=== PATIENT | male | born 1960 | race Caucasian/White ===

== ENCOUNTER 2017-09-18 12:50 | Inpatient (IN) | payer BC ==
[2017-09-18] MEDS ORDERED: Albuterol/Ipratropium 3.0-0.5 MG/3 ML Neb Soln NEB ONE (13:14)
--- NOTE | 2017-09-18 13:16 | EDM.PDOC ---
ED HPI GENERAL MEDICAL PROBLEM - General Chief Complaint: General Stated Complaint: irregular heartbeat Time Seen by Provider: 09/18/17 12:50 Source of Information: Reports: Patient History Limitations: Reports: No Limitations - History of Present Illness INITIAL COMMENTS - FREE TEXT/NARRATIVE: 57 y.o.w.m came to the ed due to leg swelling and SOB. Pt can no t walk 1/2 a block, then get sob. he was not dx'd with SOB in the past. He is on inhalers. No F/C. Pulse ox was 80 with movement on arrival. BP 144/88 Pulse ox 90 (at rest ) Temp 36.1 RR 17 Onset Date: 09/16/17 Onset Time: 07:00 Duration: Day(s):, Getting Worse Location: Reports: Lower Extremity, Left, Lower Extremity, Right Quality: Reports: Ache Severity: Moderate Improves with: Reports: Rest Worsens with: Reports: Movement Context: Reports: Other (legswelling) Associated Symptoms: Reports: Cough, Shortness of Breath - Related Data Allergies Allergy/AdvReac Type Severity Reaction Status Date / Time No Known Allergies Allergy Verified 09/18/17 13:04 Home Meds: Home Meds Albuterol Sulfate [Ventolin Hfa] 2 inhalation INH BID 09/18/17 [History] Budesonide/Formoterol [Symbicort 160-4.5 MCG] 10.2 gm IH ASDIRECTED 09/18/17 [ History] Umeclidinium Emblem [Incruse Ellipta*] 1 inhalation INH DAILY 09/18/17 [History ] Albuterol/Ipratropium [DuoNeb 3.0-0.5 MG/3 ML] 3 ml INH QIDRT 30 Days #100 neb 09/19/17 [Rx] Nicotine [Habitrol] 21 mg TRDERM DAILY 30 Days #30 patch 09/19/17 [Rx] Prednisone [IJD: predniSONE] 40 mg PO WITHBREAKFAST 3 Days #6 tablet 09/19/17 [ Rx] Sulfamethoxazole/Trimethoprim [IJD: Sulfamethoxazole/Trimethoprim DS] 1 tab PO BID 4 Days #8 tablet 09/19/17 [Rx] Umeclidinium Brm/Vilanterol Tr [Anoro Ellipta 62.5-25 MCG] 62.5 mcg IH DAILY inhaler 11/05/17 [Rx] ED ROS GENERAL - Review of Systems Review Of Systems: See Below Constitutional: Reports: Weakness HEENT: Reports: No Symptoms Respiratory: Reports: Shortness of Breath, Wheezing, Cough Cardiovascular: Reports: Dyspnea on Exertion, Edema, Orthopnea Endocrine: Reports: No Symptoms GI/Abdominal: Reports: No Symptoms : Reports: No Symptoms Musculoskeletal: Reports: No Symptoms Skin: Reports: No Symptoms Neurological: Reports: No Symptoms Psychiatric: Reports: No Symptoms Hematologic/Lymphatic: Reports: No Symptoms Immunologic: Reports: No Symptoms ED EXAM, GENERAL - Physical Exam Exam: See Below Exam Limited By: No Limitations General Appearance: Alert, WD/WN, Moderate Distress Eye Exam: Bilateral Eye: Normal Inspection Ears: Normal External Exam Ear Exam: Bilateral Ear: Auricle Normal Nose: Normal Inspection, Normal Mucosa Throat/Mouth: Normal Inspection Head: Atraumatic, Normocephalic Neck: Normal Inspection, Supple, Non-Tender, Full Range of Motion Respiratory/Chest: No Respiratory Distress, Decreased Breath Sounds, Crackles, Wheezing Cardiovascular: Normal Peripheral Pulses, Regular Rate, Rhythm, No Edema, JVD Peripheral Pulses: 1+: Radial (L), Radial (R) GI/Abdominal: Normal Bowel Sounds, Soft, Non-Tender, No Organomegaly (Male) Exam: No Hernia Rectal (Males) Exam: Deferred Back Exam: Normal Inspection, Full Range of Motion Extremities: Pedal Edema (2+ both ankles) Neurological: Alert, Oriented, CN II-XII Intact, Normal Cognition, Normal Gait Psychiatric: Normal Affect Skin Exam: Warm, Dry Lymphatic: No Adenopathy EKG INTERPRETATION EKG Date: 09/18/17 Time: 13:10 Rhythm: NSR Rate (Beats/Min): 71 [place]: Normal P-Wave: Present QRS: Normal ST-T: Normal QT: Normal Comparison: NA - No Prior EKG Course - Vital Signs Text/Narrative:: 57 y.o.w.m came to the ed due to leg swelling and SOB. Pt can no t walk 1/2 a block, then get sob. he was not dx'd with SOB in the past. He is on inhalers. No F/C. Pulse ox was 80 with movement on arrival. BP 144/88 Pulse ox 90 (at rest ) Temp 36.1 RR 17 PE: WNWD W M with lower leg edema (pitting) Lungs: distant breath sounds, wheezes, COPD Imaging: CXR: COPD, CHF US lower legs pending ( please see Dr. Grant's note) Labs; CBC WNL, INR 1.13 D Dimer 676 BNP 2505, BUN 9 Cr 0.9 Na 135 K 3.5 Impression: COPD exacerbation, Elevated D Dimer (CTA pening) CHF Tx: Duo neb, Solu Medrol, Lasix was ordered Reexam: Improved Consultation: Dr. Grant, Hospitalist: Accepted the patient for admission Plan: Admit to M/S tele Last Recorded V/S: Last Vital Signs Temp 36.6 C 09/19/17 12:00 Pulse 77 09/19/17 12:00 Resp 18 09/19/17 12:00 BP 126/67 09/19/17 12:00 Pulse Ox 92 L 09/19/17 12:00 - Orders/Labs/Meds Labs: Laboratory Tests 09/18/17 09/18/17 09/18/17 Range/Units 13:25 13:25 13:25 WBC 9.5 (4.5-12.0) X10-3/uL RBC 4.45 (4.30-5.75) x10(6)uL Hgb 14.2 (11.5-15.5) g/dL Hct 42.0 (30.0-51.3) % MCV 94.4 (80-96) fL MCH 32.0 (27.7-33.6) pg MCHC 33.9 (32.2-35.4) g/dL RDW 13.8 (11.5-15.5) % Plt Count 210 (125-369) X10(3)uL MPV 8.1 (7.4-10.4) fL Neut % (Auto) 74.4 (46-82) % Lymph % (Auto) 18.0 (13-37) % [place] % (Auto) 4.8 (4-12) % Eos % (Auto) 1 (1.0-5.0) % Baso % (Auto) 2 (0-2) % Neut # (Auto) 7.0 (1.6-8.3) # Lymph # (Auto) 1.7 (0.6-5.0) # [place] # (Auto) 0.5 (0.0-1.3) # Eos # (Auto) 0.1 (0.0-0.8) # Baso # (Auto) 0.2 (0.0-0.2) # PT 11.4 H (8.7-11.1) INR 1.13 (0.89-1.13) D-Dimer, Quantitative 676 H (100-400) ng/mL Sodium (135-145) mmol/L Potassium (3.5-5.3) mmol/L Chloride (100-110) mmol/L Carbon Dioxide (23-29) mmol/L BUN (5-20) mg/dL Creatinine (0.6-1.3) mg/dL Est Cr Clr Drug Dosing mL/min Estimated GFR (MDRD) (>60) BUN/Creatinine Ratio (9-20) Glucose (80-116) mg/dL Calcium (8.6-10.2) mg/dL Troponin I (0.02-0.06) NG/ML NT-Pro-B Natriuret Pep (5-125) pg/mL 09/18/17 09/18/17 Range/Units 13:25 13:25 WBC (4.5-12.0) X10-3/uL RBC (4.30-5.75) x10(6)uL Hgb (11.5-15.5) g/dL Hct (30.0-51.3) % MCV (80-96) fL MCH (27.7-33.6) pg MCHC (32.2-35.4) g/dL RDW (11.5-15.5) % Plt Count (125-369) X10(3)uL MPV (7.4-10.4) fL Neut % (Auto) (46-82) % Lymph % (Auto) (13-37) % [place] % (Auto) (4-12) % Eos % (Auto) (1.0-5.0) % Baso % (Auto) (0-2) % Neut # (Auto) (1.6-8.3) # Lymph # (Auto) (0.6-5.0) # [place] # (Auto) (0.0-1.3) # Eos # (Auto) (0.0-0.8) # Baso # (Auto) (0.0-0.2) # PT (8.7-11.1) INR (0.89-1.13) D-Dimer, Quantitative (100-400) ng/mL Sodium 135 (135-145) mmol/L Potassium 3.5 (3.5-5.3) mmol/L Chloride 93 L (100-110) mmol/L Carbon Dioxide 36 H (23-29) mmol/L BUN 9 (5-20) mg/dL Creatinine 0.9 (0.6-1.3) mg/dL Est Cr Clr Drug Dosing 95.29 mL/min Estimated GFR (MDRD) > 60 (>60) BUN/Creatinine Ratio 10.0 (9-20) Glucose 129 H (80-116) mg/dL Calcium 8.2 L (8.6-10.2) mg/dL Troponin I 0.01 L (0.02-0.06) NG/ML NT-Pro-B Natriuret Pep 2505 H (5-125) pg/mL Meds: Medications Discontinued Medications Generic Name Dose Route Start Last Admin Trade Name Freq PRN Reason Stop Dose Admin Acetaminophen 650 mg 09/18/17 16:10 Tylenol PO Q4H PRN Pain (Mild 1-3)/fever Albuterol/Ipratropium 3 ml 09/18/17 13:14 09/18/17 13:25 Duoneb 3.0-0.5 Mg/3 Ml NEB 09/18/17 13:15 3 ml ONETIME ONE Administration Albuterol/Ipratropium 3 ml 09/18/17 21:00 09/19/17 11:56 Duoneb 3.0-0.5 Mg/3 Ml INH 3 ml QIDRT RADHA Administration Enoxaparin Sodium 40 mg 09/18/17 16:15 09/19/17 10:12 Lovenox SUBCUT 40 mg DAILY RADHA Administration Furosemide 20 mg 09/18/17 15:36 09/18/17 16:04 Lasix IVPUSH 09/18/17 15:37 Not Given ONETIME ONE Furosemide 40 mg 09/18/17 16:26 09/18/17 17:54 Lasix IVPUSH 09/18/17 16:27 40 mg NOW ONE Administration Ibuprofen 400 mg 09/18/17 16:10 09/18/17 23:47 Motrin PO 400 mg Q6H PRN Administration Pain (mild 1-3) Methylprednisolone Sodium Succinate 125 mg 09/18/17 13:17 09/18/17 13:48 Solu-Medrol IVPUSH 09/18/17 13:18 125 mg ONETIME ONE Administration Mometasone Furoate/Formoterol Fumar 0 puff 09/18/17 22:00 09/19/17 10:11 Dulera 200-5 Mcg IH 2 puff BID RADHA Administration Nicotine 21 mg 09/18/17 16:15 09/19/17 10:37 Habitrol TRDERM 21 mg DAILY RADHA Administration Non-Formulary Medication 10.2 gm 09/18/17 16:45 Budesonide/Formoterol [Symbicort 160-4.5 Mcg] IH ASDIRECTED RADHA Non-Formulary Medication 62.5 mcg 09/18/17 16:45 Umeclidinium Emblem [Incruse Ellipta*] INH ASDIRECTED RADHA Prednisone 40 mg 09/18/17 16:30 09/19/17 07:39 Prednisone PO 40 mg WITHBREAKFAST RADHA Administration Sodium Chloride 10 ml 09/18/17 13:16 09/18/17 18:15 Saline Flush FLUSH 10 ml ASDIRECTED PRN Administration Keep Vein Open Sodium Chloride 10 ml 09/18/17 16:10 Saline Flush FLUSH ASDIRECTED PRN Keep Vein Open Trimethoprim/Sulfamethoxazole 1 tab 09/18/17 16:30 09/19/17 10:12 Septra Ds PO 09/23/17 16:31 1 tab BID RADHA Administration Departure - Departure Time of Disposition: 05:00 Disposition: Admitted As Inpatient 65 Condition: Fair Clinical Impression: COPD exacerbation - Discharge Information
[2017-09-18] MEDS ORDERED: methylPREDNISolone Sodium Succinate 125 MG/2 ML SDV IVPUSH ONE (13:17)
[2017-09-18] MEDS: Sodium Chloride 0.9% 10 ML Syringe FLUSH PRN ×3 (13:47→18:15)
[2017-09-18] MEDS ORDERED: Furosemide 20 MG/2 ML VIAL IVPUSH ONE (15:36)
[2017-09-18] MEDS ORDERED: Sodium Chloride 0.9% 10 ML Syringe FLUSH PRN (16:10)
[2017-09-18] MEDS ORDERED: Ibuprofen 400 MG Tab PO PRN (16:10)
[2017-09-18] MEDS ORDERED: Acetaminophen 325 MG Tab PO PRN (16:10)
[2017-09-18] MEDS ORDERED: Furosemide 40 MG/4 ML VIAL IVPUSH ONE (16:26)
[2017-09-18] MEDS ORDERED: Non-Formulary Medication 1 Each (Umeclidinium Bromide [Incruse Ellipta*] 62.5 MCG) INH SCH (16:45)
[2017-09-18] MEDS ORDERED: FORMOTEROL IH SCH (16:45)
[2017-09-18] MEDS ORDERED: BUDESONIDE IH SCH (16:45)
--- NOTE | 2017-09-18 17:40 | PCM.HP ---
H&P History of Present Illness - General Date of Service: 09/18/17 Admit Problem/Dx: Admission Diagnosis/Problem Admission Diagnosis/Problem Chronic obstructive pulmonary disease with acute exacerbation Source of Information: Patient, Old Records, Provider - History of Present Illness Initial Comments - Free Text/Narative: Patient is a 57 yo male with a history of chronic obstructive pulmonary disease secondary to smoking and [employer]don[employer]'s lung. He's had chronic shortness of breath for the last 5 years. About 3 weeks ago he started to get congested with sinus drainage cough and was coughing up green-yellow phlegm. He was getting increasingly short of breath until this morning when he woke up with a bit of a headache from the cough and then noticed he had bilateral pedal edema. 2 days ago he had a very heavily salted meal which was unusual for him and he thought at first the swelling was from this. However he was sitting in his chair and started to develop an aching in the left arm and it lasted about 30 minutes. He had no neck pain, no jaw pain, no sweating, no nausea, no dizziness with this. However, it concerned him enough that he decided to come into the emergency room for further evaluation. When he arrived he was found to be on 80% O2 sats on room air. He was put on nasal cannula oxygen saturations came up nicely into the mid 90s. He has no past history of coronary artery disease. Has been a longtime smoker since the age of 9 smoking 3-4 packs per day for 43 years and for the last 5 years about one pack per day. He is a nondrinker. Has had no fevers, no chills, no sweats. No diarrhea. 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 Of note, the patient had a terrible coughing episode in the emergency department which resulted in him getting so short of breath he lost consciousness. Unfortunately he was sitting on the edge of a cot when this happened fell forward striking the right baptism on the floor. He was alert and oriented immediately after the syncopal episode when staff found him on the floor. He was operated on the right baptism. A CT scan of the head was done which was negative. No new neurologic symptoms after this. He does not have a headache currently. Past medical history: COPD as noted above. Not oxygen dependent at home. Home medications: Uses Symbicort and Ellipta. Also takes an aspirin a day and Advil 2 in the morning and 2 in the evening for arthritis aches and pains. Social history: The patient has a 48 year history of smoking, 3 packs a day to 4 packs a day for 43 years and 5-pack-year history since that time. He drinks a beer once a year. He is single. No children. 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 Allergies: no known drug allergies Family history: Mom of lung cancer in her 60s. Dad of a CVA in his 60s. He has 2 brothers one of whom has lung disease and the other has sleep apnea. - Related Data Allergies/Adverse Reactions: Allergies Allergy/AdvReac Type Severity Reaction Status Date / Time No Known Allergies Allergy Verified 09/18/17 13:04 Home Medications: Home Meds Albuterol Sulfate [Ventolin Hfa] 2 inhaler INH ASDIRECTED PRN 09/18/17 [History] Budesonide/Formoterol [Symbicort 160-4.5 MCG] 10.2 gm IH ASDIRECTED 09/18/17 [ History] Umeclidinium [place] [Incruse Ellipta*] 62.5 mcg INH ASDIRECTED 09/18/17 [ History] Past Medical History Respiratory History: Reports: COPD - Infectious Disease History Infectious Disease History: Reports: Chicken Pox, Measles, Mumps, Shingles - Past Surgical History GI Surgical History: Reports: Appendectomy Social & Family History - Family History Family Medical History: Noncontributory - Tobacco Use Smoking Status *Q: Current Every Day Smoker Years of Tobacco use: 48 Packs/Tins Daily: 1 Used Tobacco, but Quit: No Second Hand Smoke Exposure: No - Caffeine Use Caffeine Use: Reports: Soda Other Caffeine Use: 6 pack a day - Recreational Drug Use Recreational Drug Use: No H&P Review of Systems - Review of Systems: Review Of Systems: See Below General: Reports: No Symptoms HEENT: Reports: Rhinitis, Post Nasal Drip, Sinus Congestion Pulmonary: Reports: Shortness of Breath, Wheezing, Cough, Sputum Cardiovascular: Reports: No Symptoms Gastrointestinal: Reports: No Symptoms Genitourinary: Reports: No Symptoms Musculoskeletal: Reports: Muscle Pain, Muscle Stiffness Skin: Reports: No Symptoms Psychiatric: Reports: No Symptoms Neurological: Reports: Syncope Hematologic/Lymphatic: Reports: No Symptoms Immunologic: Reports: No Symptoms Exam - Exam Exam: See Below - Vital Signs Vital Signs: Last Vital Signs Temp 36.8 C 09/18/17 17:01 Pulse 72 09/18/17 17:01 Resp 20 09/18/17 17:01 BP 132/82 09/18/17 17:01 Pulse Ox 92 L 09/18/17 17:01 Weight: 105.188 kg - Exam Quality Assessment: Supplemental Oxygen General: Alert, Oriented, Cooperative HEENT: PERRLA Neck: Supple Lungs: Decreased Breath Sounds (Lungs are diminished throughout, have wheezing and fine crackles in the bases bilaterally.), Rales, Wheezing Cardiovascular: Regular Rate, Regular Rhythm, Normal S1, Normal S2 GI/Abdominal Exam: Normal Bowel Sounds, Soft, Non-Tender, No Organomegaly, No Distention Back Exam: Normal Inspection (2+ pedal edema to the knees bilaterally.) Psychiatric: Alert, Normal Affect, Normal Mood - Patient Data Result Diagrams: 09/18/17 13:25 09/18/17 13:25 EKG INTERPRETATION EKG Date: 09/18/17 (Normal sinus rhythm, no ST elevation or depression, no T- wave inversion. No arrhythmia. Intraventricular conduction delay in lead 3 and aVF.) Rhythm: NSR *Q Meaningful Use (ADM) - VTE *Q VTE Criteria *Q: - Stroke *Q Stroke Criteria *Q: - AMI *Q AMI Criteria *Q: - Problem List (1) COPD exacerbation SNOMED Code(s): 967053177144117 ICD Code: J44.1 - CHRONIC OBSTRUCTIVE PULMONARY DISEASE W (ACUTE) EXACERBATION Status: Acute Current Visit: Yes Problem Details: The patient 's chest x-ray does not appear to be significant failure. Symptoms are consistent with a COPD exacerbation with hypoxia. Suspect underlying hypoxia at home as well. Patient will be admitted as an inpatient for antibiotic treatment with oral Bactrim, prednisone 40 mg by mouth daily 5 days. DuoNeb's 4 times a day. (2) Pedal edema SNOMED Code(s): 468653425 ICD Code: R60.0 - LOCALIZED EDEMA Status: Acute Current Visit: Yes Problem Details: I expect this is likely given the patient's labs to be related to his heavy salt intake 2 days ago. However I think it would be prudent to rule out bilateral DVT. Ultrasound was ordered. Patient will be covered with DVT prophylaxis Lovenox. 40 mg IV Lasix given. Renal function is normal. (3) Vasovagal syncope SNOMED Code(s): 397626719 ICD Code: R55 - SYNCOPE AND COLLAPSE Status: Acute Current Visit: Yes Problem Details: Triggered by excessive cough and probable hypoxia. However cannot rule out cardiogenic cause. Patient will be ruled out with serial troponins and kept on a cardiac monitor technician for the next 24 hours. (4) DVT prophylaxis SNOMED Code(s): 027253895 ICD Code: [id number] - Status: Acute Current Visit: Yes Problem Details: Lovenox, SCDs. (5) Nicotine addiction SNOMED Code(s): 81090558 ICD Code: F17.200 - NICOTINE DEPENDENCE, UNSPECIFIED, UNCOMPLICATED Status : Acute Current Visit: Yes Problem Details: Nicotine patch, gum. Problem List Initiated/Reviewed/Updated: Yes Orders Last 24hrs: Active Orders 24 hr Category Date Time Status Patient Status [ADT] Routine ADT 09/18/17 16:26 Active Oxygen Therapy [RC] PRN Care 09/18/17 16:26 Active VTE/DVT Education [RC] Per Unit Routine Care 09/18/17 16:26 Active Vital Signs [RC] Q4H Care 09/18/17 16:26 Active VL Duplex Lwr Ext Art Comp Bi [US] Stat Exams 09/18/17 16:24 Ordered TROPONIN I [CHEM] AM Lab 09/19/17 05:11 Ordered Budesonide/Formoterol [Symbicort 160-4.5 MCG] Med 09/18/17 16:45 Pending 10.2 gm IH ASDIRECTED Sulfamethoxazole/Trimethoprim [Septra DS] Med 09/18/17 16:30 Active 1 tab PO BID Umeclidinium [place] [Incruse Ellipta*] Med 09/18/17 16:45 Pending 62.5 mcg INH ASDIRECTED predniSONE Med 09/18/17 16:30 Active 40 mg PO WITHBREAKFAST Medication Orders Acetaminophen (Tylenol) 650 mg PO Q4H PRN PRN Reason: Pain (Mild 1-3)/fever Albuterol/Ipratropium (Duoneb 3.0-0.5 Mg/3 Ml) 3 ml INH QIDRT RADHA Enoxaparin Sodium (Lovenox) 40 mg SUBCUT DAILY RADHA Ibuprofen (Motrin) 400 mg PO Q6H PRN PRN Reason: Pain (mild 1-3) Nicotine (Habitrol) 21 mg TRDERM DAILY [facility] Non-Formulary Medication (Budesonide/Formoterol [Symbicort 160-4.5 Mcg]) 10.2 gm IH ASDIRECTED RADHA Non-Formulary Medication (Umeclidinium [place] [Incruse Ellipta*]) 62.5 mcg INH ASDIRECTED RADHA Prednisone (Prednisone) 40 mg PO WITHBREAKFAST [facility] Sodium Chloride (Saline Flush) 10 ml FLUSH ASDIRECTED PRN PRN Reason: Keep Vein Open Last Admin: 09/18/17 16:00 Dose: 10 ml Admin: 09/18/17 13:47 Dose: 10 ml Sodium Chloride (Saline Flush) 10 ml FLUSH ASDIRECTED PRN PRN Reason: Keep Vein Open Trimethoprim/Sulfamethoxazole (Septra Ds) 1 tab PO BID [facility] Stop: 09/23/17 16:31 Assessment/Plan Comment:: CODE STATUS discussed at length with the patient and he is a full code. However , if he were to have something happened to him where he couldn't take care of himself, he can feed himself, he would not want tube feedings or to be kept alive on machines. His younger brother is his power of commercial litigation attorney/decision-maker.
[2017-09-18] MEDS: Nicotine 21 MG/24 Hr Patch TRDERM SCH (17:53)
[2017-09-18] MEDS: predniSONE 20 MG Tab PO SCH (17:55)
[2017-09-18] MEDS: Sulfamethoxazole/Trimethoprim 800-160 MG Tab PO SCH ×2 (17:56→21:51)
[2017-09-18] MEDS: Enoxaparin 40 MG/0.4 ML Syringe SUBCUT SCH (18:09)
[2017-09-18] MEDS: Albuterol/Ipratropium 3.0-0.5 MG/3 ML Neb Soln INH SCH (21:51)
[2017-09-18] MEDS: Formoterol/Mometasone 200-5 MCG 8.8 GM Inhaler IH SCH (21:55)
[2017-09-19] MEDS: Albuterol/Ipratropium 3.0-0.5 MG/3 ML Neb Soln INH SCH ×2 (07:16→11:56)
[2017-09-19] MEDS: predniSONE 20 MG Tab PO SCH (07:39)
[2017-09-19] MEDS ORDERED: Umeclidinium Brm/Vilanterol Tr 62.5-25 MCG 30 Puff Inhaler IH SCH (09:00)
[2017-09-19] MEDS: Formoterol/Mometasone 200-5 MCG 8.8 GM Inhaler IH SCH (10:11)
[2017-09-19] MEDS: Enoxaparin 40 MG/0.4 ML Syringe SUBCUT SCH (10:12)
[2017-09-19] MEDS: Sulfamethoxazole/Trimethoprim 800-160 MG Tab PO SCH (10:12)
[2017-09-19] MEDS: Nicotine 21 MG/24 Hr Patch TRDERM SCH (10:37)
--- NOTE | 2017-09-19 12:10 | PCM.DCSUM1 ---
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 He's had chronic shortness of breath for the last 5 years. About 3 weeks [employer] he started to get congested with sinus drainage cough and was coughing up green-yellow phlegm. He was getting increasingly short of breath until morning of admission when he woke up with a bit of a headache from the cough and then noticed he had bilateral pedal edema. 2 days ago he had a very heavily salted meal which was unusual for him and he thought at first the swelling was from this. However he was sitting in his chair and started to develop an aching in the left arm and it lasted about 30 minutes. He had no neck pain, no jaw pain, no sweating, no nausea, no dizziness with this. However, it concerned him enough that he decided to come into the emergency room for further evaluation. When he arrived he was found to have 80% O2 sats on room air. He was put on nasal cannula, oxygen saturations came up nicely into the mid 90s. He has no past history of coronary artery disease. Has been a longtime smoker since the age of 9 smoking 3-4 packs per day for 43 years and for the last 5 years about one pack per day. He is a nondrinker. Has had no fevers, no chills, no sweats. No diarrhea. 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 Of note , the patient had a terrible coughing episode in the emergency department which resulted in him getting so short of breath he lost consciousness. Unfortunately he was sitting on the edge of a cot when this happened fell forward striking the right moravian on the floor. He was alert and oriented immediately after the syncopal episode when staff found him on the floor. He had a contusion on the right moravian. A CT scan of the head was done which was negative. No new neurologic symptoms after this. He does not have a headache currently. Hospital Course: Patient did well throughout hospitalization. Serial troponins were negative. DVT study was negative. On 2nd day of hospitalization, he was eager to go home. No CP, no GILLIAM, no N/V/D. Had SOB with activity improved from admission and really back to his baseline he felt. Tolerating PO meds well. PX exam on day of discharge: Head shows small abrasion right moravian from fall yesterday. PERRL. Lungs sounds are improved with no wheezing, no rhonchi, no rales. Heart RRR without murmur. Abd soft, nontender, ND. Normal BS. LE show no edema now. - Discharge Data Discharge Date: 09/19/17 Discharge Disposition: Home, W Home Health Agency 06 Condition: Good - Discharge Diagnosis/Problem(s) (1) COPD exacerbation SNOMED Code(s): 408832959389275 ICD Code: J44.1 - CHRONIC OBSTRUCTIVE PULMONARY DISEASE W (ACUTE) EXACERBATION Status: Acute Current Visit: Yes Problem Details: Patient would like to be discharged home. I suspect given his previous SOB even when well he has been hypoxic for some time even before the last 3 weeks of illness. He is taking PO meds, and ruled out for cardiac etiology. If we can arrange home O2, he can be discharged today. (2) Pedal edema SNOMED Code(s): 530224397 ICD Code: R60.0 - LOCALIZED EDEMA Status: Acute Current Visit: Yes Problem Details: DVT study prelim was negative. Patient's swelling completely resolved with one dose of IV lasix. Stressed low salt diet to prevent recurrence. (3) Vasovagal syncope SNOMED Code(s): 374980324 ICD Code: R55 - SYNCOPE AND COLLAPSE Status: Acute Current Visit: Yes Problem Details: Cardiac ruled out with serial troponins and 24 hours monitoring. Likely vasovagal from cough. (4) DVT prophylaxis SNOMED Code(s): 579479197 ICD Code: [id number] - Status: Acute Current Visit: Yes Problem Details: Lovenox, SCDs. (5) Nicotine addiction SNOMED Code(s): 40193259 ICD Code: F17.200 - NICOTINE DEPENDENCE, UNSPECIFIED, UNCOMPLICATED Status : Acute Current Visit: Yes Problem Details: Nicotine patch, patient has lozenges at home. Encouraged to quit smoking as he will from his lung disease more quickly if he doesn't stop smoking. - Patient Instructions Diet: Heart Healthy Diet, Low Sodium Other/Special Instructions: Stop smoking. Continue your rescue inhaler 4x a day for the next 48 hours. Take the antibiotics and steroid for another 3-4 days. Use up all the pills. You should see your PCP this week. You had a phlegm culture done in the hospital. He will need to follow up on this. You can use your oxygen at home as instructed by Marylou. - Discharge Plan Prescriptions/Med Rec: Albuterol/Ipratropium [DuoNeb 3.0-0.5 MG/3 ML] 3 ml INH QIDRT 30 Days #100 neb Nicotine [Habitrol] 21 mg TRDERM DAILY 30 Days #30 patch Prednisone [IJD: predniSONE] 40 mg PO WITHBREAKFAST 3 Days #6 tablet Sulfamethoxazole/Trimethoprim [IJD: Sulfamethoxazole/Trimethoprim DS] 1 tab PO BID 4 Days #8 tablet Home Medications: Home Meds Albuterol Sulfate [Ventolin Hfa] 2 inhalation INH BID 09/18/17 [History] Budesonide/Formoterol [Symbicort 160-4.5 MCG] 10.2 gm IH ASDIRECTED 09/18/17 [ History] Umeclidinium [place] [Incruse Ellipta*] 1 inhalation INH DAILY 09/18/17 [History ] Albuterol/Ipratropium [DuoNeb 3.0-0.5 MG/3 ML] 3 ml INH QIDRT 30 Days #100 neb 09/19/17 [Rx] Nicotine [Habitrol] 21 mg TRDERM DAILY 30 Days #30 patch 09/19/17 [Rx] Prednisone [IJD: predniSONE] 40 mg PO WITHBREAKFAST 3 Days #6 tablet 09/19/17 [ Rx] Sulfamethoxazole/Trimethoprim [IJD: Sulfamethoxazole/Trimethoprim DS] 1 tab PO BID 4 Days #8 tablet 09/19/17 [Rx] Umeclidinium Brm/Vilanterol Tr [Anoro Ellipta 62.5-25 MCG] 62.5 mcg IH DAILY inhaler 09/19/17 [Rx] Patient Handouts: Shortness of Breath, [id number], Chronic Obstructive Pulmonary Disease, [id number], Fall Prevention in Hospitals, Adult, Venous Thromboembolism Prevention Forms: ED Department Discharge Referrals: Rod Sotelo MD [Primary Care Provider] - - Discharge Summary/Plan Comment DC Time >30 min.: Yes - Patient Data Vitals - Most Recent: Last Vital Signs Temp 36.8 C 09/19/17 08:00 Pulse 70 09/19/17 11:57 Resp 18 09/19/17 08:00 BP 127/72 09/19/17 08:00 Pulse Ox 93 L 09/19/17 11:57 Weight - Most Recent: 104.19 kg I&O - Last 24 hours: Intake & Output 09/18/17 09/19/17 09/19/17 23:59 06:59 14:59 Intake Total Output Total Balance Lab Results - Last 24 hrs: Laboratory Results - last 24 hr 09/18/17 09/18/17 09/19/17 Range/Units 18:40 20:10 05:25 WBC 15.7 H (4.5-12.0) X10-3/uL RBC 4.41 (4.30-5.75) x10(6)uL Hgb 14.1 (11.5-15.5) g/dL Hct 41.4 (30.0-51.3) % MCV 94.1 (80-96) fL MCH 32.0 (27.7-33.6) pg MCHC 34.0 (32.2-35.4) g/dL RDW 14.3 (11.5-15.5) % Plt Count 217 (125-369) X10(3)uL MPV 8.8 (7.4-10.4) fL Add Manual Diff Yes Neutrophils % (Manual) 88 H (46-82) % Band Neutrophils % 2 (0-6) % Lymphocytes % (Manual) 4 L (13-37) % Monocytes % (Manual) 6 (4-12) % Sodium (135-145) mmol/L Potassium (3.5-5.3) mmol/L Chloride (100-110) mmol/L Carbon Dioxide (23-29) mmol/L BUN (5-20) mg/dL Creatinine (0.6-1.3) mg/dL Est Cr Clr Drug Dosing mL/min Estimated GFR (MDRD) (>60) BUN/Creatinine Ratio (9-20) Glucose (80-116) mg/dL Calcium (8.6-10.2) mg/dL Troponin I < 0.01 L (0.02-0.06) NG/ML Urine Color Yellow (YELLOW) Urine Appearance Clear (CLEAR) Urine pH 7.0 H (5.0-6.5) Ur Specific [place] 1.005 L (1.010-1.025) Urine Protein Negative (NEGATIVE) mg/dL Urine Glucose (UA) Normal (NEGATIVE) mg/dL Urine Ketones Negative (NEGATIVE) mg/dL Urine Occult Blood Negative (NEGATIVE) Urine Nitrite Negative (NEGATIVE) Urine Bilirubin Negative (NEGATIVE) Urine Urobilinogen Normal (NEGATIVE) mg/dL Ur Leukocyte Esterase Negative (NEGATIVE) Urine RBC 0-5 (0) Urine WBC 0-5 (0) Ur Squamous Epith Cells Occasional (NS,R,O) Urine Bacteria Not seen (NS) 09/19/17 09/19/17 Range/Units 05:25 05:25 WBC (4.5-12.0) X10-3/uL RBC (4.30-5.75) x10(6)uL Hgb (11.5-15.5) g/dL Hct (30.0-51.3) % MCV (80-96) fL MCH (27.7-33.6) pg MCHC (32.2-35.4) g/dL RDW (11.5-15.5) % Plt Count (125-369) X10(3)uL MPV (7.4-10.4) fL Add Manual Diff Neutrophils % (Manual) (46-82) % Band Neutrophils % (0-6) % Lymphocytes % (Manual) (13-37) % Monocytes % (Manual) (4-12) % Sodium 135 (135-145) mmol/L Potassium 3.8 (3.5-5.3) mmol/L Chloride 92 L (100-110) mmol/L Carbon Dioxide 34 H (23-29) mmol/L BUN 12 (5-20) mg/dL Creatinine 0.8 (0.6-1.3) mg/dL Est Cr Clr Drug Dosing 107.20 mL/min Estimated GFR (MDRD) > 60 (>60) BUN/Creatinine Ratio 15.0 (9-20) Glucose 135 H (80-116) mg/dL Calcium 8.4 L (8.6-10.2) mg/dL Troponin I < 0.01 L (0.02-0.06) NG/ML Urine Color (YELLOW) Urine Appearance (CLEAR) Urine pH (5.0-6.5) Ur Specific [place] (1.010-1.025) Urine Protein (NEGATIVE) mg/dL Urine Glucose (UA) (NEGATIVE) mg/dL Urine Ketones (NEGATIVE) mg/dL Urine Occult Blood (NEGATIVE) Urine Nitrite (NEGATIVE) Urine Bilirubin (NEGATIVE) Urine Urobilinogen (NEGATIVE) mg/dL Ur Leukocyte Esterase (NEGATIVE) Urine RBC (0) Urine WBC (0) Ur Squamous Epith Cells (NS,R,O) Urine Bacteria (NS) TORITO Results - Last 24 hrs: Microbiology 09/19/17 00:00 Gram Stain - Final Sputum - Expectorated Med Orders - Current: Current Medications Acetaminophen (Tylenol) 650 mg PO Q4H PRN PRN Reason: Pain (Mild 1-3)/fever Albuterol/Ipratropium (Duoneb 3.0-0.5 Mg/3 Ml) 3 ml INH QIDRT [facility] Last Admin: 09/19/17 11:56 Dose: 3 ml Enoxaparin Sodium (Lovenox) 40 mg SUBCUT DAILY [facility] Last Admin: 09/19/17 10:12 Dose: 40 mg Ibuprofen (Motrin) 400 mg PO Q6H PRN PRN Reason: Pain (mild 1-3) Last Admin: 09/18/17 23:47 Dose: 400 mg Mometasone Furoate/Formoterol Fumar (Dulera 200-5 Mcg) 0 puff IH BID [facility] Last Admin: 09/19/17 10:11 Dose: 2 puff Nicotine (Habitrol) 21 mg TRDERM DAILY [facility] Last Admin: 09/19/17 10:37 Dose: 21 mg Prednisone (Prednisone) 40 mg PO WITHBREAKFAST [facility] Last Admin: 09/19/17 07:39 Dose: 40 mg Sodium Chloride (Saline Flush) 10 ml FLUSH ASDIRECTED PRN PRN Reason: Keep Vein Open Last Admin: 09/18/17 18:15 Dose: 10 ml Sodium Chloride (Saline Flush) 10 ml FLUSH ASDIRECTED PRN PRN Reason: Keep Vein Open Trimethoprim/Sulfamethoxazole (Septra Ds) 1 tab PO BID [facility] Stop: 09/23/17 16:31 Last Admin: 09/19/17 10:12 Dose: 1 tab Discontinued Medications Albuterol/Ipratropium (Duoneb 3.0-0.5 Mg/3 Ml) 3 ml NEB ONETIME ONE Stop: 09/18/17 13:15 Last Admin: 09/18/17 13:25 Dose: 3 ml Furosemide (Lasix) 20 mg IVPUSH ONETIME ONE Stop: 09/18/17 15:37 Last Admin: 09/18/17 16:04 Dose: Not Given Furosemide (Lasix) 40 mg IVPUSH NOW ONE Stop: 09/18/17 16:27 Last Admin: 09/18/17 17:54 Dose: 40 mg Methylprednisolone Sodium Succinate (Solu-Medrol) 125 mg IVPUSH ONETIME ONE Stop: 09/18/17 13:18 Last Admin: 09/18/17 13:48 Dose: 125 mg Non-Formulary Medication (Budesonide/Formoterol [Symbicort 160-4.5 Mcg]) 10.2 gm IH ASDIRECTED RADHA Non-Formulary Medication (Umeclidinium [place] [Incruse Ellipta*]) 62.5 mcg INH ASDIRECTED RADHA *Q Meaningful Use (DIS) - VTE *Q VTE Criteria *Q: - Stroke *Q Stroke Criteria *Q: - AMI *Q AMI Criteria *Q:
--- NOTE | 2017-09-20 11:24 | US ---
INDICATION: Bilateral lower extremity swelling, positive D-dimer, question DVT. DUPLEX ULTRASOUND, RIGHT LOWER EXTREMITY VEINS: Utilizing 2-D real time, duplex Doppler spectral analysis, and color flow imaging, examination of the right lower extremity veins revealed no evidence of deep venous thrombosis or obstruction. Compression views showed no abnormal lack of compression to suggest thrombosis. No evidence of incompetence of the valves was identified. The anterior tibial vein is relatively small in caliber and visualized in the proximal one-half only, most likely on that basis. IMPRESSION: Duplex ultrasound, right lower extremity veins, shows no evidence of deep venous thrombosis or incompetence. DUPLEX ULTRASOUND, LEFT LOWER EXTREMITY VEINS: Utilizing 2-D real time, duplex Doppler spectral analysis, and color flow imaging, examination of the left lower extremity veins revealed no evidence of deep venous thrombosis or obstruction. Compression views showed no abnormal lack of compression to suggest thrombosis. No evidence of incompetence of the valves was identified. IMPRESSION: Duplex ultrasound, left lower extremity veins, shows no evidence of deep venous thrombosis or incompetence. [facility]
--- NOTE | 2017-09-20 11:45 | CR ---
INDICATION: Short of breath. CHEST: Two PA views and a lateral view of the chest 09/18/2017. No comparisons were available. Overlying tubings are noted. EKG leads are also noted overlying. Hyperaeration, flattening of diaphragm leaves, and prominent AP diameter are all compatible with COPD. Bony structures appear to be grossly intact. The heart appeared normal in size and shape. Calcifications are noted in the arch of the aorta. The aorta is slightly tortuous. A definite active infiltrate or effusion was not identified. Prominent epicardial fat pad is noted on the left. IMPRESSION: 1. No definite acute process. 2. COPD. 3. ASD aorta. MTDD
== END 2017-09-19 14:42 | disposition home health service (06) | DRG 140 ==
LOC: FB.ED 12:50 → FB.MS 16:10
PROVIDERS: ADMIT Family Medicine; ATTEND Family Medicine
DX: J44.1 Chronic obstructive pulmonary disease with (acute) exacerbation (principal); R09.02 Hypoxemia; R05 Cough; J67.0 Farmer's lung; F17.210 Nicotine dependence, cigarettes, uncomplicated; R55 Syncope and collapse; S00.83XA Contusion of other part of head, initial encounter; W06.XXXA Fall from bed, initial encounter; Y92.238 Other place in hospital as the place of occurrence of the external cause; M19.90 Unspecified osteoarthritis, unspecified site; R60.0 Localized edema; Z79.82 Long term (current) use of aspirin; R06.02 Shortness of breath; S00.81XA Abrasion of other part of head, initial encounter; Z79.52 Long term (current) use of systemic steroids; Z99.81 Dependence on supplemental oxygen; R79.1 Abnormal coagulation profile
CPT/HCPCS: 36415; 70450; 71020; 80048; 81001; 83880; 84484; 85025; 85379; 85610; 87070; 87205; 93005; 93970; 94640; 96374; 99285; A9270-GY; J1650; J1940; J2930; J7050; J7620

== ENCOUNTER 2018-05-06 11:20 | Observation (INO) | payer BC ==
[2018-05-06] MEDS ORDERED: Sodium Chloride 0.9% 10 ML Syringe FLUSH PRN (12:50)
[2018-05-06] MEDS ORDERED: Enoxaparin 40 MG/0.4 ML Syringe SUBCUT SCH (13:00)
--- NOTE | 2018-05-06 13:00 | PCM.HP ---
H&P History of Present Illness - General Date of Service: 05/06/18 Admit Problem/Dx: Admission Diagnosis/Problem Admission Diagnosis/Problem Chest pain Source of Information: Patient History Limitations: Reports: No Limitations - History of Present Illness Initial Comments - Free Text/Narative: This is a 58-year-old male patient that presented himself to [facility] today to Dr. Hogan for chest pain. He says it started yesterday with some little feeling in the chest. Today started with chest pressure radiating to the left arm. He says he may have got a little sweaty that that was because the hot weather. No nausea or new shortness of breath. He has a COPD and normally has shortness of breath. He has no fevers, chills, cough. He has no family or personal history of coronary artery disease a significant. He is also a smoker. He denies history hypertension, diabetes or coronary artery disease. He was put in the treatment room and oxygen was applied and baby aspirins 4 were given. The patient's symptoms got much improved. He refused to go viral illness was transferred to the hospital by car. In the clinic is troponin was normal and EKG showed no acute changes. Left Anterior Chest Pain Score (Numeric/FACES): 6 - Related Data Allergies/Adverse Reactions: Allergies Allergy/AdvReac Type Severity Reaction Status Date / Time No Known Allergies Allergy Verified 09/18/17 13:04 Home Medications: Home Meds Budesonide/Formoterol [Symbicort 160-4.5 MCG] 2 puff IH DAILY 09/18/17 [History] Umeclidinium [place] [Incruse Ellipta*] 1 inhalation INH DAILY 09/18/17 [History ] Past Medical History Respiratory History: Reports: COPD Musculoskeletal History: Reports: Arthritis - Infectious Disease History Infectious Disease History: Reports: Chicken Pox, Measles, Mumps, Shingles - Past Surgical History Cardiovascular Surgical History: Reports: AAA Repair Respiratory Surgical History: Reports: None GI Surgical History: Reports: Appendectomy Social & Family History - Family History Family Medical History: Noncontributory - Tobacco Use Smoking Status *Q: Current Every Day Smoker Years of Tobacco use: 49 Packs/Tins Daily: 0.7 Used Tobacco, but Quit: No Second Hand Smoke Exposure: No - Caffeine Use Caffeine Use: Reports: Soda Other Caffeine Use: 6 pepsis - Recreational Drug Use Recreational Drug Use: No H&P Review of Systems - Review of Systems: Review Of Systems: See Below General: Reports: Diaphoresis HEENT: Reports: No Symptoms Pulmonary: Reports: Shortness of Breath. Denies: Cough, Sputum, Hemoptysis Cardiovascular: Reports: Chest Pain Gastrointestinal: Reports: No Symptoms Genitourinary: Reports: No Symptoms Musculoskeletal: Reports: No Symptoms Skin: Reports: No Symptoms Psychiatric: Reports: No Symptoms Neurological: Reports: No Symptoms Hematologic/Lymphatic: Reports: No Symptoms Immunologic: Reports: No Symptoms Exam - Exam Exam: See Below - Vital Signs Vital Signs: Last Vital Signs Temp 98.2 F 05/06/18 12:00 Pulse 68 05/06/18 12:00 Resp 15 05/06/18 12:00 BP 155/104 H 05/06/18 12:00 Pulse Ox 96 05/06/18 12:02 Weight: 217 lb 9.6 oz - Exam General: Alert, Oriented, Cooperative HEENT: PERRLA, Hearing Intact, Posterior Pharynx Clear, TMs Clear Neck: Supple, Trachea Midline Lungs: Clear to Auscultation, Normal Respiratory Effort. No: Rales, Rhonchi, Rub Cardiovascular: Regular Rate, Regular Rhythm, Normal S1, Normal S2. No: Bradycardia, Tachycardia, Systolic Murmur, Diastolic Murmur GI/Abdominal Exam: Normal Bowel Sounds, Soft, Non-Tender, No Distention, No Mass Back Exam: Normal Inspection, Full Range of Motion Extremities: Normal Inspection, Non-Tender, No Pedal Edema Skin: Warm, Dry, Intact Neuro Extensive - Mental Status: Alert, Oriented x3, Normal Mood/Affect, Normal Cognition, Memory Intact Neuro Extensive - Motor, Sensory, Reflexes: Normal Gait Psychiatric: Alert, Normal Affect, Normal Mood - Problem List (1) Chest pain SNOMED Code(s): 02537274 ICD Code: R07.9 - CHEST PAIN, UNSPECIFIED Status: Acute Current Visit: Yes (2) COPD (chronic obstructive pulmonary disease) SNOMED Code(s): 96889901 ICD Code: J44.9 - CHRONIC OBSTRUCTIVE PULMONARY DISEASE, UNSPECIFIED Status : Acute Current Visit: Yes (3) Nicotine addiction SNOMED Code(s): 57031483 ICD Code: F17.200 - NICOTINE DEPENDENCE, UNSPECIFIED, UNCOMPLICATED Status : Acute Current Visit: No Problem Details: Nicotine patch, patient has lozenges at home. Encouraged to quit smoking as he will from his lung disease more quickly if he doesn't stop smoking. Problem List Initiated/Reviewed/Updated: Yes Orders Last 24hrs: Active Orders 24 hr Category Date Time Status Patient Status [ADT] Routine ADT 05/06/18 12:51 Ordered Cardiac Monitoring [RC] CONTINUOUS Care 05/06/18 12:51 Ordered EKG Documentation Completion [RC] ASDIRECTED Care 05/06/18 12:53 Ordered Oxygen Therapy [RC] PRN Care 05/06/18 12:51 Ordered Up ad Teetee [RC] ASDIRECTED Care 05/06/18 12:50 Ordered VTE/DVT Education [RC] Per Unit Routine Care 05/06/18 12:51 Ordered Vital Signs [RC] Q4H Care 05/06/18 12:51 Ordered CBC WITH AUTO DIFF [HEME] Routine Lab 05/06/18 12:50 Ordered COMPREHENSIVE METABOLIC PN,CMP [CHEM] Routine Lab 05/06/18 12:50 Ordered TROPONIN I [CHEM] Routine Lab 05/06/18 16:00 Ordered Budesonide/Formoterol [Symbicort 160-4.5 MCG] Med 05/07/18 09:00 Ordered 2 puff IH DAILY Enoxaparin [Lovenox] Med 05/06/18 13:00 Ordered 40 mg SUBCUT Q24H Sodium Chloride 0.9% [Saline Flush] Med 05/06/18 12:50 Ordered 10 ml FLUSH ASDIRECTED PRN Umeclidinium [place] [Incruse Ellipta*] Med 05/07/18 09:00 Ordered 1 inhalation INH DAILY Peripheral IV Insertion Adult [OM.PC] Routine Oth 05/06/18 12:50 Ordered Resuscitation Status Routine Resus Stat 05/06/18 12:50 Ordered EKG 12 Lead [EK] Routine Ther 05/06/18 16:00 Ordered Medication Orders Enoxaparin Sodium (Lovenox) 40 mg SUBCUT Q24H RADHA Sodium Chloride (Saline Flush) 10 ml FLUSH ASDIRECTED PRN PRN Reason: Keep Vein Open Assessment/Plan Comment:: 1. Admit to the ICU for observation. 2. VTE prophylaxis with Lovenox 40 mg sub-every once a day. 3. Cardiac diet. 4. Serial troponins and EKGs. 5. O2 to keep sats greater than 90%. 6. Up ad teetee. 7. Chem-12 and panel 8. 8. Continue cardiac monitoring 9. Patient wants to be full resuscitation.
[2018-05-06] MEDS ORDERED: Nitroglycerin 0.4 MG Tab.SL SL PRN (16:57)
--- NOTE | 2018-05-07 08:36 | PCM.PN ---
- General Info Date of Service: 05/07/18 Subjective Update: Patient denies chest pain, shortness of breath, arm pain. He has a little left shoulder pain which she says is from his arthritis which is always had. No fevers or chills. Nurses report hypoxia when he is walking. His history of COPD. He reports no changes from before. Wears oxygen at night at home. - Patient Data Vitals - Most Recent: Last Vital Signs Temp 98.8 F 05/07/18 07:20 Pulse 58 L 05/07/18 07:20 Resp 16 05/07/18 07:20 BP 144/88 H 05/07/18 05:00 Pulse Ox 92 L 05/07/18 07:50 Weight - Most Recent: 216 lb 12.8 oz I&O - Last 24 Hours: Intake & Output 05/06/18 05/07/18 05/07/18 22:59 06:59 14:59 Output Total 400 Balance -400 Lab Results Last 24 Hours: Laboratory Results - last 24 hr 05/06/18 05/06/18 05/06/18 Range/Units 13:00 13:00 16:05 WBC 7.1 (4.5-12.0) X10-3/uL RBC 4.61 (4.30-5.75) x10(6)uL Hgb 14.4 (11.5-15.5) g/dL Hct 43.4 (30.0-51.3) % MCV 94.0 (80-96) fL MCH 31.2 (27.7-33.6) pg MCHC 33.2 (32.2-35.4) g/dL RDW 13.4 (11.5-15.5) % Plt Count 175 (125-369) X10(3)uL MPV 7.8 (7.4-10.4) fL Neut % (Auto) 70.4 (46-82) % Lymph % (Auto) 23.3 (13-37) % [place] % (Auto) 3.8 L (4-12) % Eos % (Auto) 2 (1.0-5.0) % Baso % (Auto) 1 (0-2) % Neut # (Auto) 4.9 (1.6-8.3) # Lymph # (Auto) 1.7 (0.6-5.0) # [place] # (Auto) 0.3 (0.0-1.3) # Eos # (Auto) 0.1 (0.0-0.8) # Baso # (Auto) 0.1 (0.0-0.2) # Sodium 137 (135-145) mmol/L Potassium 3.9 (3.5-5.3) mmol/L Chloride 98 L (100-110) mmol/L Carbon Dioxide 35 H (21-32) mmol/L BUN 9 (7-18) mg/dL Creatinine 0.9 (0.70-1.30) mg/dL Est Cr Clr Drug Dosing 92.69 mL/min Estimated GFR (MDRD) > 60 (>60) BUN/Creatinine Ratio 10.0 (9-20) Glucose 99 (80-116) mg/dL Calcium 8.5 L (8.6-10.2) mg/dL Total Bilirubin 0.7 (0.1-1.3) mg/dL AST 21 (5-25) IU/L ALT 23 (12-36) U/L Alkaline Phosphatase 92 (56-112) IU/L Troponin I < 0.017 L (<0.017-0.056) ng/mL Total Protein 7.1 (6.0-8.0) g/dL Albumin 3.4 L (3.5-5.2) g/dL Globulin 3.7 g/dL Albumin/Globulin Ratio 0.9 06/23/18 Range/Units 06:15 WBC (4.5-12.0) X10-3/uL RBC (4.30-5.75) x10(6)uL Hgb (11.5-15.5) g/dL Hct (30.0-51.3) % MCV (80-96) fL MCH (27.7-33.6) pg MCHC (32.2-35.4) g/dL RDW (11.5-15.5) % Plt Count (125-369) X10(3)uL MPV (7.4-10.4) fL Neut % (Auto) (46-82) % Lymph % (Auto) (13-37) % [place] % (Auto) (4-12) % Eos % (Auto) (1.0-5.0) % Baso % (Auto) (0-2) % Neut # (Auto) (1.6-8.3) # Lymph # (Auto) (0.6-5.0) # [place] # (Auto) (0.0-1.3) # Eos # (Auto) (0.0-0.8) # Baso # (Auto) (0.0-0.2) # Sodium (135-145) mmol/L Potassium (3.5-5.3) mmol/L Chloride (100-110) mmol/L Carbon Dioxide (21-32) mmol/L BUN (7-18) mg/dL Creatinine (0.70-1.30) mg/dL Est Cr Clr Drug Dosing mL/min Estimated GFR (MDRD) (>60) BUN/Creatinine Ratio (9-20) Glucose (80-116) mg/dL Calcium (8.6-10.2) mg/dL Total Bilirubin (0.1-1.3) mg/dL AST (5-25) IU/L ALT (12-36) U/L Alkaline Phosphatase (56-112) IU/L Troponin I < 0.017 L (<0.017-0.056) ng/mL Total Protein (6.0-8.0) g/dL Albumin (3.5-5.2) g/dL Globulin g/dL Albumin/Globulin Ratio Med Orders - Current: Current Medications Aspirin (Ecotrin) 325 mg PO DAILY [facility] Enoxaparin Sodium (Lovenox) 40 mg SUBCUT Q24H [facility] Last Admin: 05/06/18 13:38 Dose: 40 mg Mometasone Furoate/Formoterol Fumar (Dulera 200-5 Mcg) 2 puff IH DAILY [facility] Nitroglycerin (Nitrostat) 0.4 mg SL Q5M PRN PRN Reason: Chest Pain Sodium Chloride (Saline Flush) 10 ml FLUSH ASDIRECTED PRN PRN Reason: Keep Vein Open Tiotropium Comfort (Spiriva Handihaler) 0 mcg INH DAILY [facility] - Exam General: Alert, Oriented, Cooperative Lungs: Clear to Auscultation, Decreased Breath Sounds. No: Crackles, Rales, Rhonchi Cardiovascular: Regular Rate, Regular Rhythm, No Murmurs Extremities: No Pedal Edema - Problem List & Annotations (1) Chest pain SNOMED Code(s): 47635435 Code(s): R07.9 - CHEST PAIN, UNSPECIFIED Status: Acute Current Visit: Yes (2) COPD (chronic obstructive pulmonary disease) SNOMED Code(s): 77555981 Code(s): J44.9 - CHRONIC OBSTRUCTIVE PULMONARY DISEASE, UNSPECIFIED Status : Acute Current Visit: Yes (3) Nicotine addiction SNOMED Code(s): 08141824 Code(s): F17.200 - NICOTINE DEPENDENCE, UNSPECIFIED, UNCOMPLICATED Status: Acute Current Visit: No Annotation/Comment:: Nicotine patch, patient has lozenges at home. Encouraged to quit smoking as he will from his lung disease more quickly if he doesn't stop smoking. (4) Hypoxia SNOMED Code(s): 447141553 Code(s): R09.02 - HYPOXEMIA Status: Acute Current Visit: Yes - Problem List Review Problem List Initiated/Reviewed/Updated: Yes - My Orders Last 24 Hours: My Active Orders 05/06/18 12:50 Up ad [place] [RC] ASDIRECTED Sodium Chloride 0.9% [Saline Flush] 10 ml FLUSH ASDIRECTED PRN Peripheral IV Insertion Adult [OM.PC] Routine Resuscitation Status Routine 05/06/18 12:51 Patient Status [ADT] Routine Cardiac Monitoring [RC] 08,16,00 Oxygen Therapy [RC] PRN Vital Signs [RC] 04,08,12,16,20,00 05/06/18 13:00 Enoxaparin [Lovenox] 40 mg SUBCUT Q24H 05/06/18 16:00 EKG 12 Lead [EK] Routine 05/06/18 16:57 Nitroglycerin [Nitrostat] 0.4 mg SL Q5M PRN 05/06/18 16:58 EKG Documentation Completion [RC] 0600 05/07/18 05:11 EKG 12 Lead [EK] AM 05/07/18 09:00 Aspirin [Ecotrin] 325 mg PO DAILY Mometasone/Formoterol [Dulera 200-5 MCG] 2 puff IH DAILY Tiotropium [Spiriva HandiHaler] 0 mcg INH DAILY - Plan Plan:: 1. Troponins 3 and EKGs 3 shows no acute changes. 2. I have respiratory therapy walk with adenosine which O2 he needs. 3. Discharged home on aspirin, nitroglycerin when necessary. 4. I will set up a chemical cardiac stress test for him. Recheck with Dr. Ardon a week.
--- NOTE | 2018-05-07 08:41 | PCM.DCSUM1 ---
Discharge Summary - Hospital Course Free Text/Narrative:: Hospital course-patient's symptoms were gone right away. Overnight he had no chest pain or arm pain. He states he has left shoulder pain that is chronic from arthritis. He had some of that. He had EKGs 3 and troponins 3 that were negative. He was found to be hypoxic when he is walking. He has a history of COPD and uses oxygen at night. He states his breathing is about the same. We will send him home on oxygen all the time. Set up to see Dr. Ardon 7-10 days. Patient needs a chemical stress test because he can walk on the treadmill good enough to get his heart rate up. I will set that up with the RN at [facility]. Recommend that he take an aspirin a day and nitroglycerin if the pain comes back. The pain comes back and is to be seen immediately. Brief History: This is a 58-year-old male patient that presented himself to [facility] today to Dr. Hogan for chest pain. He says it started yesterday with some little feeling in the chest. Today started with chest pressure radiating to the left arm. He says he may have got a little sweaty that that was because the hot weather. No nausea or new shortness of breath. He has a COPD and normally has shortness of breath. He has no fevers, chills, cough. He has no family or personal history of coronary artery disease a significant. He is also a smoker. He denies history hypertension, diabetes or coronary artery disease. He was put in the treatment room and oxygen was applied and baby aspirins 4 were given. The patient's symptoms got much improved. He refused to go viral illness was transferred to the hospital by car. In the clinic is troponin was normal and EKG showed no acute changes. Diagnosis: Stroke: No Modified Simpson Scale: No Symptoms at All Modified Simpson Scale Score: 0 - Discharge Data Discharge Date: 05/07/18 Discharge Disposition: Home, Self-Care 01 Condition: Good - Discharge Diagnosis/Problem(s) (1) Chest pain SNOMED Code(s): 95886103 ICD Code: R07.9 - CHEST PAIN, UNSPECIFIED Status: Acute Current Visit: Yes (2) COPD (chronic obstructive pulmonary disease) SNOMED Code(s): 50758889 ICD Code: J44.9 - CHRONIC OBSTRUCTIVE PULMONARY DISEASE, UNSPECIFIED Status : Acute Current Visit: Yes (3) Nicotine addiction SNOMED Code(s): 34622792 ICD Code: F17.200 - NICOTINE DEPENDENCE, UNSPECIFIED, UNCOMPLICATED Status : Acute Current Visit: No Problem Details: Nicotine patch, patient has lozenges at home. Encouraged to quit smoking as he will from his lung disease more quickly if he doesn't stop smoking. (4) Hypoxia SNOMED Code(s): 750172642 ICD Code: R09.02 - HYPOXEMIA Status: Acute Current Visit: Yes - Patient Instructions Diet: Regular Diet as Tolerated Activity: As Tolerated Driving: May Drive Today Showering/Bathing: May Shower Notify Provider of: Increased Pain Other/Special Instructions: 1. Recheck with Dr. Gabriel in 1 week. 2. I will send a message to Michael Guajardo and set up a chemical cardiac stress test for this patient. 3. 81 enteric-coated aspirin [id number] once a day. 4. Oxygen all the time to-3 L when he is walking. - Discharge Plan Prescriptions/Med Rec: Nitroglycerin [Nitrostat] 0.4 mg SL Q5M PRN #25 tab.sl PRN Reason: Chest Pain Home Medications: Home Meds Budesonide/Formoterol [Symbicort 160-4.5 MCG] 2 puff IH BID 09/18/17 [History] Umeclidinium [place] [Incruse Ellipta*] 1 inhalation INH DAILY 09/18/17 [History ] Nitroglycerin [Nitrostat] 0.4 mg SL Q5M PRN #25 tab.sl 05/07/18 [Rx] Patient Handouts: Venous Thromboembolism Prevention - Discharge Summary/Plan Comment DC Time >30 min.: No - Patient Data Vitals - Most Recent: Last Vital Signs Temp 98.8 F 05/07/18 07:20 Pulse 58 L 05/07/18 07:20 Resp 16 05/07/18 07:20 BP 144/88 H 05/07/18 05:00 Pulse Ox 92 L 05/07/18 07:50 Weight - Most Recent: 216 lb 12.8 oz I&O - Last 24 hours: Intake & Output 05/06/18 05/07/18 05/07/18 22:59 06:59 14:59 Output Total 400 Balance -400 Lab Results - Last 24 hrs: Laboratory Results - last 24 hr 05/06/18 05/06/18 05/06/18 Range/Units 13:00 13:00 16:05 WBC 7.1 (4.5-12.0) X10-3/uL RBC 4.61 (4.30-5.75) x10(6)uL Hgb 14.4 (11.5-15.5) g/dL Hct 43.4 (30.0-51.3) % MCV 94.0 (80-96) fL MCH 31.2 (27.7-33.6) pg MCHC 33.2 (32.2-35.4) g/dL RDW 13.4 (11.5-15.5) % Plt Count 175 (125-369) X10(3)uL MPV 7.8 (7.4-10.4) fL Neut % (Auto) 70.4 (46-82) % Lymph % (Auto) 23.3 (13-37) % [place] % (Auto) 3.8 L (4-12) % Eos % (Auto) 2 (1.0-5.0) % Baso % (Auto) 1 (0-2) % Neut # (Auto) 4.9 (1.6-8.3) # Lymph # (Auto) 1.7 (0.6-5.0) # [place] # (Auto) 0.3 (0.0-1.3) # Eos # (Auto) 0.1 (0.0-0.8) # Baso # (Auto) 0.1 (0.0-0.2) # Sodium 137 (135-145) mmol/L Potassium 3.9 (3.5-5.3) mmol/L Chloride 98 L (100-110) mmol/L Carbon Dioxide 35 H (21-32) mmol/L BUN 9 (7-18) mg/dL Creatinine 0.9 (0.70-1.30) mg/dL Est Cr Clr Drug Dosing 92.69 mL/min Estimated GFR (MDRD) > 60 (>60) BUN/Creatinine Ratio 10.0 (9-20) Glucose 99 (80-116) mg/dL Calcium 8.5 L (8.6-10.2) mg/dL Total Bilirubin 0.7 (0.1-1.3) mg/dL AST 21 (5-25) IU/L ALT 23 (12-36) U/L Alkaline Phosphatase 92 (56-112) IU/L Troponin I < 0.017 L (<0.017-0.056) ng/mL Total Protein 7.1 (6.0-8.0) g/dL Albumin 3.4 L (3.5-5.2) g/dL Globulin 3.7 g/dL Albumin/Globulin Ratio 0.9 / Range/Units 06:15 WBC (4.5-12.0) X10-3/uL RBC (4.30-5.75) x10(6)uL Hgb (11.5-15.5) g/dL Hct (30.0-51.3) % MCV (80-96) fL MCH (27.7-33.6) pg MCHC (32.2-35.4) g/dL RDW (11.5-15.5) % Plt Count (125-369) X10(3)uL MPV (7.4-10.4) fL Neut % (Auto) (46-82) % Lymph % (Auto) (13-37) % [place] % (Auto) (4-12) % Eos % (Auto) (1.0-5.0) % Baso % (Auto) (0-2) % Neut # (Auto) (1.6-8.3) # Lymph # (Auto) (0.6-5.0) # [place] # (Auto) (0.0-1.3) # Eos # (Auto) (0.0-0.8) # Baso # (Auto) (0.0-0.2) # Sodium (135-145) mmol/L Potassium (3.5-5.3) mmol/L Chloride (100-110) mmol/L Carbon Dioxide (21-32) mmol/L BUN (7-18) mg/dL Creatinine (0.70-1.30) mg/dL Est Cr Clr Drug Dosing mL/min Estimated GFR (MDRD) (>60) BUN/Creatinine Ratio (9-20) Glucose (80-116) mg/dL Calcium (8.6-10.2) mg/dL Total Bilirubin (0.1-1.3) mg/dL AST (5-25) IU/L ALT (12-36) U/L Alkaline Phosphatase (56-112) IU/L Troponin I < 0.017 L (<0.017-0.056) ng/mL Total Protein (6.0-8.0) g/dL Albumin (3.5-5.2) g/dL Globulin g/dL Albumin/Globulin Ratio Med Orders - Current: Current Medications Aspirin (Ecotrin) 325 mg PO DAILY [facility] Enoxaparin Sodium (Lovenox) 40 mg SUBCUT Q24H [facility] Last Admin: 05/06/18 13:38 Dose: 40 mg Mometasone Furoate/Formoterol Fumar (Dulera 200-5 Mcg) 2 puff IH DAILY [facility] Nitroglycerin (Nitrostat) 0.4 mg SL Q5M PRN PRN Reason: Chest Pain Sodium Chloride (Saline Flush) 10 ml FLUSH ASDIRECTED PRN PRN Reason: Keep Vein Open Tiotropium [place] (Spiriva Handihaler) 0 mcg INH DAILY [facility]
[2018-05-07] MEDS ORDERED: Aspirin 325 MG Tab.EC PO SCH (09:00)
[2018-05-07] MEDS ORDERED: Formoterol/Mometasone 200-5 MCG 8.8 GM Inhaler IH SCH (09:00)
[2018-05-07] MEDS ORDERED: UMECLIDINIUM BROMIDE INH SCH (09:00)
[2018-05-07] MEDS ORDERED: Non-Formulary Medication 1 Each (Budesonide/Formoterol [Symbicort 160-4.5 Mcg] 2 PUFF) IH SCH (09:00)
[2018-05-07] MEDS ORDERED: Tiotropium Inhaler 18 MCG Inhalation Powder Cap Kit of 5 INH SCH (09:00)
== END 2018-05-07 09:20 | disposition home or self-care (01) ==
LOC: FB.ICU 11:43 → INTOOBSV 11:43
PROVIDERS: ADMIT Family Medicine; ATTEND Family Medicine
DX: R07.9 Chest pain, unspecified (principal); J44.9 Chronic obstructive pulmonary disease, unspecified; M13.812 Other specified arthritis, left shoulder; F17.200 Nicotine dependence, unspecified, uncomplicated; Z79.51 Long term (current) use of inhaled steroids; Z79.899 Other long term (current) drug therapy; Z99.81 Dependence on supplemental oxygen
CPT/HCPCS: 36415; 80053; 84484; 85025; 93005; A9270; J1650; 96375; G0378

== ENCOUNTER 2025-05-26 22:31 | Emergency (ER) | payer BC, MEDICARE, SELFPAY ==
[2025-05-26] MEDS: HYDROmorphone 2 MG/ML SDV IM ONE (22:56)
[2025-05-27] MEDS: HYDROmorphone 2 MG/ML SDV IVPUSH ONE (00:05)
[2025-05-27 00:12] LABS: BASOPHILS ABSOLUTE AUTO 0.1 x10-3/uL (0.0-0.3); BASOPHILS PERCENT AUTO 0.8 % (0.3-3.8); EOSINOPHILS ABSOLUTE AUTO 0.0 x10-3/uL (0.0-0.6); EOSINOPHILS PERCENT AUTO 0.4 % (0.1-6.8); LYMPHOCYTES ABSOLUTE AUTO 1.1 x10-3/uL (0.5-4.5); LYMPHOCYTES PERCENT AUTO 11.6 % (15.8-45.3); MEAN PLATELET VOLUME 7.2 fL (6.7-11.0); MONOCYTES ABSOLUTE AUTO 0.4 x10-3/uL (0.0-1.2); MONOCYTES PERCENT AUTO 4.2 % (5.5-15.2); NEUTROPHILS ABSOLUTE AUTO 8.0 x10-3/uL (1.7-6.9); NEUTROPHILS PERCENT AUTO 83.0 % (40.3-71.8); PLATELET COUNT,PLT 153 x10(3)uL (117-477); RED CELL DISTRIBUTION WIDTH 16.4 % (12.4-15.0); WHITE BLOOD CELL COUNT,WBC 9.7 x10-3/uL (3.2-10.1)
[2025-05-27 00:21] LABS: A/G RATIO 0.7; ALANINE AMINOTRANSFERASE,ALT 19 U/L (12-36); ASPARTATE AMNIOTRANSFERASE,AST 23 IU/L (5-25); BILIRUBIN TOTAL 0.6 mg/dL (0.1-1.3); BLOOD UREA NITROGEN,BUN 13 mg/dL (7-18); CHLORIDE,CL 94 mmol/L (100-110); CREATININE 0.7 mg/dL (0.70-1.30); ESTIMATED GFR 102 mL/min (>60); GLUCOSE RANDOM 167 mg/dL (80-116); POTASSIUM,K 4.1 mmol/L (3.5-5.3); PROTEIN TOTAL,TP 7.4 g/dL (6.0-8.0); SODIUM,NA 138 mmol/L (135-145)
[2025-05-27 00:22] LABS: CARBON DIOXIDE,CO2 48 mmol/L (21-32)
[2025-05-27 00:29] LABS: RED BLOOD CELL COUNT 3.34 x10(6)uL (3.90-5.90)
[2025-05-27 00:43] LABS: INR 0.92 (1.00-1.24)
[2025-05-27 00:45] LABS: PTT,PARTIAL THROMBOPLSTIN TIME 23.2 SECONDS (24.4-33.2)
[2025-05-27] MEDS: Iopamidol 755 Mg/ML 100 ML Bottle IV SCH (00:53)
[2025-05-27] MEDS: Metoprolol Tartrate 5 MG/5 ML SDV IVPUSH ONE (01:10)
[2025-05-27] MEDS: Naloxone 0.4 MG/ML SDV IVPUSH STA (01:33)
== END 2025-05-27 01:53 ==
LOC: FB.ED 22:31
DX: S22.42XA Multiple fractures of ribs, left side, initial encounter for closed fracture (principal); J43.9 Emphysema, unspecified; I48.91 Unspecified atrial fibrillation; R41.82 Altered mental status, unspecified; Z87.891 Personal history of nicotine dependence; Z79.899 Other long term (current) drug therapy; W18.39XA Other fall on same level, initial encounter; Y93.89 Activity, other specified
CPT/HCPCS: 70450; 71101; 71260; 72125; 74177; 80053; 84484; 85025; 85610; 85730; 94640; 96372; 96374; 96375; 99285; A9270; J1171; J2310; J3490; J7030; Q9967